=== PATIENT | female | born 1960 | race Caucasian/White ===

== ENCOUNTER 2017-11-20 07:02 | Day surgery (SDC) | payer OTHER ==
[2017-11-19 11:05] VITALS: BMI 24.9
[~2017-11-20 07:02] MED LIST: CYCLOPENTOLATE HCL 1% OPHTH SOLN 2 ML BOTTLE OP SCH; MOXIFLOXACIN HCL 0.5% OPHTHALMIC 3 ML BOTTLE OP SCH; PHENYLEPHRINE 2.5% OPHTH SOLN 15 ML BOTTLE OP SCH; TOBRA 0.3%/DEXAMETH 0.1% OPHTHALMIC SUSP 2.5 ML BTL OD ONE; TROPICAMIDE 1% OPHTH SOLN 15 ML BOTTLE OP SCH
[2017-11-20] MEDS ORDERED: TROPICAMIDE 0.5% OPHTHALMIC SOLN 15 ML BOTTLE ONE (07:16)
[2017-11-20 07:17] VITALS: TEMP 98
[2017-11-20] MEDS ORDERED: CYCLOPENTOLATE HCL 1% OPHTH SOLN 2 ML BOTTLE OD ONE ×3 (07:20→07:30)
[2017-11-20] MEDS ORDERED: MOXIFLOXACIN HCL 0.5% OPHTHALMIC 3 ML BOTTLE OD ONE ×3 (07:20→07:30)
[2017-11-20] MEDS ORDERED: PHENYLEPHRINE 2.5% OPHTH SOLN 15 ML BOTTLE OD ONE ×3 (07:20→07:30)
[2017-11-20] MEDS ORDERED: TROPICAMIDE 1% OPHTH SOLN 15 ML BOTTLE OD ONE ×3 (07:20→07:30)
[2017-11-20] MEDS ORDERED: TOBRA 0.3%/DEXAMETH 0.1% OPHTHALMIC SUSP 2.5 ML BTL ONE (07:31)
[2017-11-20] MEDS ORDERED: POVIDONE-IODINE 5% OPHTHALMIC PREP 30 ML SOLUTION ONE (07:31)
[2017-11-20] MEDS ORDERED: BSS (NA/CA/MG/K) BALANCED SALT SOLUTION OPHTH SOLN 15 ML BOTTLE ONE (07:31)
[2017-11-20] MEDS ORDERED: TETRACAINE 0.5% OPHTH SOLN 2 ML BOTTLE OD ONE (08:17)
[2017-11-20] MEDS ORDERED: MIDAZOLAM HCL 2 MG/2 ML SINGLE DOSE VIAL ONE (08:19)
[2017-11-20] MEDS ORDERED: POVIDONE-IODINE 5% OPHTHALMIC PREP 30 ML SOLUTION OD ONE (08:20)
[2017-11-20] MEDS ORDERED: LABETALOL HCL 5 MG/1 ML (100MG/20 ML VIAL) ONE (08:25)
[2017-11-20] MEDS ORDERED: BSS (NA/CA/MG/K) BALANCED SALT SOLUTION OPHTH SOLN 15 ML BOTTLE OD ONE (08:29)
[2017-11-20] MEDS ORDERED: CHONDROITIN SU A/HYALUR SOD 1 KIT IO ONE ×3 (08:29)
[2017-11-20] MEDS ORDERED: LIDOCAINE HCL 1% PRESERVATIVE FREE - 30ML VIAL IO ONE (08:29)
[2017-11-20] MEDS ORDERED: EPINEPHrine/PF 1 MG/1 ML (1:1,000) AMPULE SQ ONE (08:44)
[2017-11-20] MEDS ORDERED: TOBRA 0.3%/DEXAMETH 0.1% OPHTHALMIC SUSP 2.5 ML BTL OD ONE (09:18)
--- NOTE | 2017-11-20 09:25 | HP ---
History & Physical Update - History History: No Change - Physical Physical: No Change - Assessment Assessment: No Change - Plan Plan: No Change
[2017-11-20 10:23] VITALS: BP 134/73; PULSE 91
--- NOTE | 2017-11-20 11:17 | OP ---
DATE OF OPERATION: 11/20/2017 SURGEON: Murphy Venegas MD PREOPERATIVE DIAGNOSIS: Cataract, right eye. OPERATION: Phacoemulsification and intraocular lens implantation, right eye. POSTOPERATIVE DIAGNOSIS: Cataract, right eye. ANESTHESIA: Topical. COMPLICATIONS: None. BLOOD LOSS: None. SPECIMEN: None. BRIEF HISTORY: The patient is a 57-year-old woman with a past medical history of diabetes, who presents with decreased vision in the right eye down to 20/200 due to a 2+ to 3+ nuclear sclerotic lens with posterior changes. After the risks, benefits, and alternatives to cataract surgery were discussed with the patient, she consented to surgery for the right eye. DESCRIPTION OF PROCEDURE: The patient was brought to the operating room and prepped and draped in the usual sterile fashion, and an eyelid speculum was inserted in the right eye. A paracentesis was made, and the anterior chamber was inflated with nonpreserved lidocaine. This was followed by injection of Viscoat. A groove was made in the temporal clear cornea which was tunneled forward with a crescent blade. The anterior chamber was entered with a 2.75 keratome. The cystotome was used to make an incision in the center of the capsule, and a continuous curvilinear capsulorrhexis was created. Phacoemulsification was started. After 1 quadrant of the lens was removed, it was noted that there was constriction of the pupil down to about 4 mm. Phacoemulsification was stopped, and 3 iris hooks were placed in order to enlarge and stabilize the iris. This was done without incident. Phacoemulsification was continued, and the lens was removed in its entirety. Irrigation and aspiration were used to remove residual cortical material. The anterior chamber and capsular bag were reinflated with Provisc, and a 22.0-diopter SN60WF AcrySof intraocular lens was injected into the capsular bag using the [place] injector. The lens was dialed into place using a [place] hook. Irrigation and aspiration were used to remove residual Viscoelastic. The three previously placed iris hooks were removed without incident. The wound was found to be watertight, and the eye was at an appropriate pressure. The eyelid speculum was removed from the eye, and TobraDex drops and a clear shield were placed over the right eye. The patient was transferred to the recovery room in stable condition and will follow up tomorrow. Shyla [id number]
== END 2017-11-20 10:25 | disposition home or self-care (01) ==
LOC: JASU-SURG 07:02
PROVIDERS: ATTEND Ophthalmology
PROC: 08RJ3JZ Replacement of Right Lens with Synthetic Substitute, Percutaneous Approach (ICD-10-PCS; principal; 2017-11-20 08:00)
DX: H25.11 Age-related nuclear cataract, right eye (principal)
CPT/HCPCS: 82962